=== PATIENT | female | born 1980 | race African-American/Black ===

== ENCOUNTER 2025-03-12 12:45 | Emergency (ER) | payer OTHER ==
[~2025-03-12] VITALS: Ht 160 cm; Wt 95.5 kg
[2025-03-12 12:50] VITALS: PULSE 75; RESP 16; TEMP 98.1; O2SAT 98
[2025-03-12] MEDS ORDERED: IBUPROFEN600 MG PO (13:10)
[2025-03-12] MEDS ORDERED: AFRIN30 ML INH (13:10)
== END 2025-03-12 13:57 | disposition home or self-care (01) ==
LOC: FSED 13:00
DX: S01.21XA Laceration without foreign body of nose, initial encounter (principal); W20.8XXA Other cause of strike by thrown, projected or falling object, initial encounter; Y92.89 Other specified places as the place of occurrence of the external cause
CPT/HCPCS: 70486; 99284